=== PATIENT | female | born 1970 | race Caucasian/White ===

== ENCOUNTER 2017-04-11 07:30 | Inpatient (IN) | payer MEDICAID ==
[~2017-04-11] VITALS: Ht 167.6 cm; Wt 105.3 kg
[~2017-04-11 07:30] MED LIST: ATOR80TA PO; DOCU-94 PO; MAGN400T23 PO; METO25TA5 PO
[2017-04-11] MEDS ORDERED: SODIUM CHLORIDE 0.9% 1,000 ML IV ONE ×2 (09:44)
[2017-04-11] MEDS ORDERED: PIPERACILLIN-TAZOB 3.375GM 100 ML IV ONE (09:45)
[2017-04-11] MEDS ORDERED: CLINDAMYCIN 600MG IV 50 ML IV ONE (09:45)
[2017-04-11 10:11] LABS: Basophils # (auto) 0.1 uL; Basophils % (auto) 0.3 % (0.0-2.0); Eosinophils # (auto) 0.5 uL; Eosinophils % (auto) 2.6 % (0.0-7.0); Hemoglobin 13.4 g/dL (12.2-16.2); Lymphocytes # (auto) 4.1 uL; Lymphocytes % (auto) 21.4 % (10.0-50.0); Mean Corpuscular Hemoglobin 31.6 pg (28.0-32.0); Mean Corpuscular Hgb Conc. 33.4 g/dL (32.0-36.0); Mean Corpuscular Volume 94.6 fL (80.0-100.0); Mean Platelet Volume 7.7 fL (7.4-10.4); Monocytes # (auto) 1.2 uL; Monocytes % (auto) 6.1 % (0.0-12.0); Neutrophils # (auto) 13.4 uL; Neutrophils % (auto) 69.6 % (37.0-80.0); Platelet Count (auto) 419 10^3/uL (140-450); Red Cell Distribution Width 16.5 % (11.6-16.0); White Blood Cell 19.2 10^3/uL (4.4-10.8)
[2017-04-11 10:29] LABS: Albumin 3.1 g/dL (3.4-5.0); Anion Gap 11 (5-15); Aspartate Aminotransferase 5 U/L (15-37); BUN/Creatinine Ratio 4.3; Blood Urea Nitrogen 33 mg/dL (7-18); Calcium 8.7 mg/dL (8.5-10.1); Carbon Dioxide 22 mmol/L (21-32); Chloride 110 mmol/L (98-107); GFR African American 7 mL/min; GFR Non-African American 6 mL/min; Glucose 136 mg/dL (74-106); Potassium 4.2 mmol/L (3.5-5.1); Sodium 143 mmol/L (136-145)
[2017-04-11 10:34] LABS: Alkaline Phosphatase 81 U/L (45-117); Bilirubin, Total 0.3 mg/dL (0.2-1.0); Total Protein 6.6 g/dL (6.4-8.2)
[2017-04-11 10:37] LABS: B-Type Natriuretic Peptide 37.71 pg/mL (0-100)
[2017-04-11 10:39] LABS: Temperature: 23.5 C (20.0-25.0)
[2017-04-11 10:43] LABS: INR 0.9 (0.9-1.15); Partial Thromboplastin Time 27.7 sec (22.64-33.71); Prothrombin Time 9.7 sec (9.37-12.3)
[2017-04-11] MEDS ORDERED: ONDANSETRON HCL 4 MG/2 ML VIAL IV ONE (10:45)
[2017-04-11] MEDS ORDERED: MORPHINE SULFATE 4 MG/ML SYRG IV ONE (10:45)
[2017-04-11] MEDS ORDERED: VANCOMYCIN PER PHARMACY 0 MG IV SCH (12:00)
[2017-04-11] MEDS ORDERED: LORazepam 0.5 MG TAB PO PRN (12:00)
[2017-04-11] MEDS ORDERED: PROMETHAZINE HCL 25 MG/ML 1ML IV PRN (12:00)
[2017-04-11] MEDS ORDERED: LACTULOSE 20Gm/30ML SOLN PO PRN (12:00)
[2017-04-11] MEDS ORDERED: NITROGLYCERIN 0.4 MG SL TAB SL PRN (12:00)
[2017-04-11] MEDS ORDERED: DEXTROSE (50%) 50ML SYRG IV PRN (12:00)
[2017-04-11] MEDS ORDERED: MORPHINE SULF INJ 2 MG/ML SYRINGE 1ML IV PRN (12:00)
[2017-04-11] MEDS ORDERED: ACETAMINOPHEN 500 MG TAB PO PRN (12:00)
[2017-04-11] MEDS ORDERED: TEMAZEPAM 15 MG CAP PO PRN (12:00)
[2017-04-11] MEDS ORDERED: VANCOMYCIN 1GM/250ML D5W 250 ML IV ONE (12:30)
[2017-04-11] MEDS: FAMOTIDINE 20 MG TAB PO SCH (13:00)
[2017-04-11] MEDS: ENOXAPARIN SOD 30 MG/0.3 ML SYRINGE SC SCH (13:00)
[2017-04-11] MEDS: HYDROcodone-ACET 5/325MG TAB PO PRN ×2 (13:59→20:27)
[2017-04-11 16:47] LABS: Urine Bilirubin Negative (Negative); Urine Color Yellow (Yellow); Urine Ketone Negative (Negative); Urine Nitrite Negative (Negative); Urine RBC 527 /hpf (0 - 4); Urine Squamous Epithelial Cell MANY /hpf (<5); Urine Urobilinogen Normal (Negative)
[2017-04-11 16:52] VITALS: BP 116/80
[2017-04-11 16:54] LABS: Urine Blood 1+ /uL (Negative); Urine Glucose 3+ mg/dL (Normal)
[2017-04-11 17:00] VITALS: BP 120/70
[2017-04-11] MEDS: InsuLIN REG 1unit/0.01ml Soln (100units/ml) SC SCH ×2 (17:00→22:00)
[2017-04-11] MEDS: ACCU-CHEK COMFORT CURVE STRIP VI SCH ×2 (17:00→22:20)
[2017-04-11] MEDS ORDERED: METO-159 PO (18:16)
[2017-04-11] MEDS ORDERED: ATOR40TA52 PO (18:16)
[2017-04-11] MEDS ORDERED: OMEG100062 PO (18:24)
[2017-04-11] MEDS ORDERED: FURO80TA PO (18:24)
[2017-04-11] MEDS ORDERED: CALC0.25 PO (18:24)
[2017-04-11] MEDS ORDERED: IRON50IN3 IJ (18:24)
[2017-04-11] MEDS ORDERED: LOSA100T27 PO (18:24)
[2017-04-11] MEDS ORDERED: AMLO10TA2 PO (18:24)
[2017-04-11] MEDS ORDERED: INSLISPI SC (18:24)
[2017-04-11] MEDS ORDERED: CAL667C PO (18:24)
[2017-04-11] MEDS ORDERED: GENT0.1O5 TOP (18:24)
[2017-04-11] MEDS ORDERED: MULT1CHW52 PO (18:24)
[2017-04-11 20:15] VITALS: BP 108/65
[2017-04-11] MEDS: CLINDAMYCIN 600MG IV 50 ML IV SCH (20:28)
[2017-04-11 22:00] VITALS: BP 108/65
[2017-04-11] MEDS ORDERED: FAMOTIDINE 20 MG TAB PO SCH (22:00)
[2017-04-11] MEDS: MORPHINE SULF INJ 2 MG/ML SYRINGE 1ML IV PRN (22:17)
[2017-04-11] MEDS: PIPERACILLIN-TAZOB 2.25GM 50 ML IV SCH (23:23)
[2017-04-12] VITALS (7 sets, daily range): BP systolic 113–148; BP diastolic 72–93
[2017-04-12] MEDS: MORPHINE SULF INJ 2 MG/ML SYRINGE 1ML IV PRN ×4 (02:34→21:47)
[2017-04-12] MEDS: CLINDAMYCIN 600MG IV 50 ML IV SCH ×3 (04:30→20:03)
[2017-04-12 05:20] LABS: Basophils # (auto) 0.1 uL; Basophils % (auto) 0.7 % (0.0-2.0); Eosinophils # (auto) 0.4 uL; Eosinophils % (auto) 3.1 % (0.0-7.0); Hematocrit 35.2 % (36.0-46.0); Hemoglobin 11.5 g/dL (12.2-16.2); Lymphocytes % (auto) 14.2 % (10.0-50.0); Mean Corpuscular Hemoglobin 31.5 pg (28.0-32.0); Mean Corpuscular Hgb Conc. 32.8 g/dL (32.0-36.0); Mean Corpuscular Volume 96.1 fL (80.0-100.0); Mean Platelet Volume 7.7 fL (7.4-10.4); Monocytes # (auto) 0.8 uL; Monocytes % (auto) 5.7 % (0.0-12.0); Neutrophils % (auto) 76.3 % (37.0-80.0); Platelet Count (auto) 366 10^3/uL (140-450); Red Cell Distribution Width 15.5 % (11.6-16.0); SUSPECT VIEW TRANSMISSION; White Blood Cell 14.3 10^3/uL (4.4-10.8)
[2017-04-12] MEDS: HYDROcodone-ACET 5/325MG TAB PO PRN (05:34)
[2017-04-12 05:42] LABS: Albumin 2.5 g/dL (3.4-5.0); BUN/Creatinine Ratio 4.8; Bilirubin, Total 0.4 mg/dL (0.2-1.0); Calcium 7.9 mg/dL (8.5-10.1); Potassium 4.6 mmol/L (3.5-5.1); Total Protein 5.6 g/dL (6.4-8.2)
[2017-04-12] MEDS: InsuLIN REG 1unit/0.01ml Soln (100units/ml) SC SCH ×4 (06:39→21:51)
[2017-04-12] MEDS: ACCU-CHEK COMFORT CURVE STRIP VI SCH ×4 (06:40→21:51)
[2017-04-12] MEDS: FAMOTIDINE 20 MG TAB PO SCH (09:15)
[2017-04-12] MEDS: ENOXAPARIN SOD 30 MG/0.3 ML SYRINGE SC SCH (09:15)
[2017-04-12] MEDS: PIPERACILLIN-TAZOB 2.25GM 50 ML IV SCH ×2 (09:16→23:27)
[2017-04-13] VITALS (7 sets, daily range): BP systolic 121–150; BP diastolic 73–98
[2017-04-13] MEDS: MORPHINE SULF INJ 2 MG/ML SYRINGE 1ML IV PRN ×2 (02:08→08:03)
[2017-04-13] MEDS: CLINDAMYCIN 600MG IV 50 ML IV SCH ×2 (04:11→11:43)
[2017-04-13] MEDS: InsuLIN REG 1unit/0.01ml Soln (100units/ml) SC SCH ×4 (06:41→22:09)
[2017-04-13] MEDS: ACCU-CHEK COMFORT CURVE STRIP VI SCH ×4 (06:42→22:09)
[2017-04-13 06:49] LABS: Basophils # (auto) 0 uL; Basophils % (auto) 0.3 % (0.0-2.0); Eosinophils # (auto) 0.5 uL; Eosinophils % (auto) 4.7 % (0.0-7.0); Hematocrit 33.8 % (36.0-46.0); Hemoglobin 11.2 g/dL (12.2-16.2); Lymphocytes # (auto) 1.9 uL; Lymphocytes % (auto) 16.2 % (10.0-50.0); Mean Corpuscular Hemoglobin 32.1 pg (28.0-32.0); Mean Corpuscular Volume 97.1 fL (80.0-100.0); Mean Platelet Volume 7.9 fL (7.4-10.4); Monocytes % (auto) 8.7 % (0.0-12.0); Neutrophils % (auto) 70.1 % (37.0-80.0); Platelet Count (auto) 358 10^3/uL (140-450); Red Cell Distribution Width 16.3 % (11.6-16.0); White Blood Cell 11.4 10^3/uL (4.4-10.8)
[2017-04-13] MEDS: ENOXAPARIN SOD 30 MG/0.3 ML SYRINGE SC SCH (09:59)
[2017-04-13] MEDS: PIPERACILLIN-TAZOB 2.25GM 50 ML IV SCH ×2 (09:59→23:05)
[2017-04-13] MEDS: FAMOTIDINE 20 MG TAB PO SCH (09:59)
[2017-04-13] MEDS: HYDROcodone-ACET 7.5/325MG TAB PO PRN ×2 (14:23→20:31)
[2017-04-14] MEDS: HYDROcodone-ACET 7.5/325MG TAB PO PRN ×2 (02:40→09:08)
[2017-04-14 05:10] VITALS: BP 129/87
[2017-04-14 06:18] LABS: Basophils # (auto) 0.1 uL; Basophils % (auto) 0.5 % (0.0-2.0); Eosinophils # (auto) 0.4 uL; Eosinophils % (auto) 3.7 % (0.0-7.0); Hematocrit 35.3 % (36.0-46.0); Hemoglobin 11.8 g/dL (12.2-16.2); Lymphocytes # (auto) 2.2 uL; Lymphocytes % (auto) 19.7 % (10.0-50.0); Mean Corpuscular Hemoglobin 31.8 pg (28.0-32.0); Mean Corpuscular Hgb Conc. 33.3 g/dL (32.0-36.0); Mean Corpuscular Volume 95.3 fL (80.0-100.0); Mean Platelet Volume 7.7 fL (7.4-10.4); Monocytes # (auto) 1.1 uL; Monocytes % (auto) 9.9 % (0.0-12.0); Neutrophils # (auto) 7.5 uL; Neutrophils % (auto) 66.2 % (37.0-80.0); Platelet Count (auto) 375 10^3/uL (140-450); Red Cell Distribution Width 16.5 % (11.6-16.0); White Blood Cell 11.3 10^3/uL (4.4-10.8)
[2017-04-14] MEDS: ACCU-CHEK COMFORT CURVE STRIP VI SCH ×2 (06:39→11:29)
[2017-04-14] MEDS: InsuLIN REG 1unit/0.01ml Soln (100units/ml) SC SCH ×2 (06:39→11:29)
[2017-04-14 08:00] VITALS: BP 147/96
[2017-04-14 09:00] VITALS: BP 147/96
[2017-04-14] MEDS: ENOXAPARIN SOD 30 MG/0.3 ML SYRINGE SC SCH (09:08)
[2017-04-14] MEDS: FAMOTIDINE 20 MG TAB PO SCH (09:08)
[2017-04-14] MEDS: PIPERACILLIN-TAZOB 2.25GM 50 ML IV SCH (10:26)
[2017-04-14] MEDS ORDERED: SACC250C PO ×2 (11:37→11:38)
[2017-04-14] MEDS ORDERED: NOR5T PO (11:37)
[2017-04-14] MEDS ORDERED: CLIN1CAP4 PO (11:37)
== END 2017-04-14 13:00 | disposition home or self-care (01) | DRG 380 ==
LOC: ER 07:36 → TELE 07:37 → TELE-WESTW 16:53
PROVIDERS: ADMIT Internal Medicine; ATTEND Internal Medicine
DX: E11.622 Type 2 diabetes mellitus with other skin ulcer (principal); L97.919 Non-pressure chronic ulcer of unspecified part of right lower leg with unspecified severity; N18.6 End stage renal disease; I12.0 Hypertensive chronic kidney disease with stage 5 chronic kidney disease or end stage renal disease; E11.22 Type 2 diabetes mellitus with diabetic chronic kidney disease; L03.115 Cellulitis of right lower limb; Z99.2 Dependence on renal dialysis; Z82.3 Family history of stroke; Z82.49 Family history of ischemic heart disease and other diseases of the circulatory system; Z83.3 Family history of diabetes mellitus; Z85.819 Personal history of malignant neoplasm of unspecified site of lip, oral cavity, and pharynx; Z86.73 Personal history of transient ischemic attack (TIA), and cerebral infarction without residual deficits; Z87.442 Personal history of urinary calculi; Z87.891 Personal history of nicotine dependence; E11.51 Type 2 diabetes mellitus with diabetic peripheral angiopathy without gangrene; Z90.49 Acquired absence of other specified parts of digestive tract; Z90.710 Acquired absence of both cervix and uterus; Z63.72 Alcoholism and drug addiction in family; Z80.9 Family history of malignant neoplasm, unspecified
CPT/HCPCS: 36415; 71010; 80053; 81001; 82962; 83036; 83605; 83880; 84132; 84484; 85025; 85379; 85610; 85652; 85730; 87040; 87081; 93926; 93970; 96365; 96366; 96367; 96375; J1815; J2405; J2543; J3490

== ENCOUNTER 2017-05-03 13:12 | Emergency (ER) | payer MEDICAID ==
[~2017-05-03] VITALS: Ht 167.6 cm; Wt 99.8 kg
[~2017-05-03 13:12] MED LIST changes: +AMLO10TA2 PO; +ATOR40TA52 PO; -ATOR80TA PO; +CALC0.25 PO; +CALC667C5 PO; +CLIN1CAP4 PO; -DOCU-94 PO; +FURO80TA PO; +GENT0.1O5 TOP; +HYDR-4663 PO; +INSLISPI SC; +IRON50IN3 IJ; +LOSA100T27 PO; -MAGN400T23 PO; +METO-159 PO; -METO25TA5 PO; +MULT1CHW52 PO; +OMEG100062 PO; +SACC250C PO
[2017-05-03 13:19] VITALS: BP 127/70
== END 2017-05-03 17:25 | disposition left against medical advice (07) ==
LOC: ER 13:16
DX: M79.604 Pain in right leg (principal); Z53.21 Procedure and treatment not carried out due to patient leaving prior to being seen by health care provider

== ENCOUNTER 2023-11-27 09:45 | Inpatient (IN) | payer MEDICAID ==
[2023-11-27] VITALS (9 sets, daily range): BP systolic 180; BP diastolic 127; PULSE 104–110; RESP 12–37; TEMP 98.6; O2SAT 91–99
[~2023-11-27] VITALS: Ht 168.9 cm; Wt 83.9 kg
[~2023-11-27 09:45] MED LIST changes: -AMLO10TA2 PO; +AMLO1TAB23 PO; -CLIN1CAP4 PO; +CLIN300C70 PO; +FURO1TAB32 PO; -FURO80TA PO; -HYDR-4663 PO; +HYDR-4833 PO; -LOSA100T27 PO; +LOSA100T58 PO
[2023-11-27] MEDS ORDERED: VANCOMYCIN 1GM/200ML 200 ML IV ONE (10:15)
[2023-11-27] MEDS ORDERED: IPRATROPIUM BROM 0.5 MG/2.5ML INH SOL HHN ONE (10:15)
[2023-11-27] MEDS ORDERED: DexAMETHasone SOD PHOS 10MG/1ML VIAL INJ IV ONE (10:15)
[2023-11-27] MEDS ORDERED: levoFLOXacin 750MG 150 ML IV ONE (10:15)
[2023-11-27] MEDS ORDERED: ALBUTEROL SULF 2.5 MG/0.5ML(0.5%) NEB SOLN HHN ONE (10:15)
[2023-11-27 10:29] LABS: Base Excess -3.8 mmol/L (-2.0-2.0)
[2023-11-27 10:42] LABS: Basophils # (auto) 0.1 10 ^3/uL (0-0.2); Eosinophils # (auto) 0.2 10 ^3/uL (0-0.8); Hemoglobin 8.4 g/dL (12.2-16.2); Lymphocytes # (auto) 1.1 10 ^3/uL (0.4-5.4); Monocytes # (auto) 0.5 10 ^3/uL (0-1.3); Nucleated Red Blood Cells % 0.1 %; White Blood Cell 10.3 10^3/uL (4.4-10.8)
[2023-11-27 10:44] LABS: Basophils % (auto) 0.8 % (0.0-2.0); Eosinophils % (auto) 2.3 % (0.0-7.0); Hematocrit 26.2 % (36.0-46.0); Lymphocytes % (auto) 11.1 % (10.0-50.0); Mean Corpuscular Hgb Conc. 32.1 g/dL (32.0-36.0); Mean Corpuscular Volume 96.5 fL (80.0-100.0); Monocytes % (auto) 4.7 % (0.0-12.0); Neutrophils # (auto) 8.3 10 ^3/uL (1.6-8.6); Neutrophils % (auto) 81.1 % (37.0-80.0); Red Blood Cells 2.72 10^6/uL (4.0-5.20); Red Cell Distribution Width 19.1 % (11.8-14.3)
[2023-11-27 10:56] LABS: INR 1.11 (0.9-1.15); Partial Thromboplastin Time 27.2 SEC (24.5-34.5); Prothrombin Time 11.6 sec (9.3-11.8)
[2023-11-27 11:11] LABS: Alanine Aminotransferase 73 U/L (7-40); Albumin 4.3 g/dL (3.2-4.8); Alkaline Phosphatase 82 U/L (46-116); Anion Gap 19 (5-15); Aspartate Aminotransferase 15 U/L (13-40); BUN/Creatinine Ratio 7.9 (10.0-20.0); Blood Urea Nitrogen 73 mg/dL (9-23); Calcium 9.2 mg/dL (8.5-10.1); Carbon Dioxide 19 mmol/L (20-30); Chloride 102 mmol/L (98-107); Glucose 101 mg/dL (74-106); Sodium 140 mmol/L (136-145)
[2023-11-27 11:12] LABS: Bilirubin, Total 0.9 mg/dL (0.2-1.0)
[2023-11-27 11:13] LABS: Total Protein 6.5 g/dL (5.7-8.2)
[2023-11-27] MEDS ORDERED: FUROSEMIDE 100 MG/10ML VIAL IV ONE (11:15)
[2023-11-27 11:19] LABS: Potassium 5.9 mmol/L (3.5-5.1)
[2023-11-27 11:31] LABS: Magnesium 2.4 mg/dL (1.6-2.6)
[2023-11-27] MEDS ORDERED: AZITHROMYCIN 500MG/ 250ML 250 ML IV ONE (12:00)
[2023-11-27] MEDS ORDERED: ALBUTEROL SULF 2.5 MG/0.5ML(0.5%) NEB SOLN NEB PRN (12:00)
[2023-11-27] MEDS ORDERED: cefTRIAXone 1GM/50ML D5W 50 ML IV ONE (12:00)
[2023-11-27] MEDS ORDERED: MORPHINE SULFATE INJ 2 MG/ml SYRG IV PRN (12:00)
[2023-11-27] MEDS ORDERED: NITROGLYCERIN 0.4 MG SL TAB SL PRN (12:00)
[2023-11-27] MEDS: CALCITRIOL 0.25 MCG CAP PO SCH (12:00)
[2023-11-27] MEDS ORDERED: DEXTROSE (50%) 50ML SYRG IV PRN (12:15)
[2023-11-27 12:44] LABS: Rapid Influenza A Negative (Negative); Rapid Influenza B Negative (Negative)
[2023-11-27 12:45] LABS: COVID19 ANTIGEN SOFIA FIA NEGATIVE (NEGATIVE)
[2023-11-27] MEDS ORDERED: FUROSEMIDE 100 MG/10ML VIAL IV SCH (12:45)
[2023-11-27] MEDS: ALBUTEROL SULF 2.5 MG/0.5ML(0.5%) NEB SOLN NEB SCH ×3 (13:45→22:10)
[2023-11-27] MEDS: IPRATROPIUM BROM 0.5 MG/2.5ML INH SOL NEB SCH ×3 (13:45→22:10)
[2023-11-27] MEDS: ACETAMINOPHEN 325 MG TAB PO PRN ×2 (14:00→20:46)
[2023-11-27] MEDS: CALCIUM ACETATE 667 MG CAP PO SCH ×2 (14:00→22:48)
[2023-11-27] MEDS ORDERED: SODIUM BICARBONATE 8.4% INJ 50ML SYRINGE IV ONE (15:15)
[2023-11-27] MEDS ORDERED: SODIUM ZIRCONIUM CYCL 10 GM PAK PO ONE (15:15)
[2023-11-27] MEDS: InsuLIN REG 1unit/0.01ml Soln (100units/ml) SC SCH ×2 (17:00→22:51)
[2023-11-27] MEDS: ACCU-CHEK COMFORT CURVE STRIP VI SCH ×2 (17:00→22:00)
[2023-11-27] MEDS: FUROSEMIDE INJECTION 100 MG in SODIUM CHL 0.9% 100 ML IV SCH (21:27)
[2023-11-27] MEDS ORDERED: FUROSEMIDE 40 MG TAB PO SCH (22:00)
[2023-11-27] MEDS: SODIUM ZIRCONIUM CYCL 10 GM PAK PO SCH (22:48)
[2023-11-27] MEDS: HEPARIN SODIUM (PORCINE) 5000 UNITS/ML 1ML VIAL SC SCH (22:49)
[2023-11-27] MEDS: methylPREDNISolone SOD SUCC 40 MG/ML VL IV SCH (22:49)
[2023-11-27] MEDS: HYDROcodone-ACET 5/325MG TAB PO PRN (23:11)
[2023-11-27] MEDS: hydrALAZINE HCL 20 MG/ML VL IV PRN (23:12)
[2023-11-28] VITALS (24 sets, daily range): BP systolic 127–166; BP diastolic 71–102; PULSE 62–120; RESP 16–28; TEMP 97.1–98.2; O2SAT 8–100
[2023-11-28] MEDS: IPRATROPIUM BROM 0.5 MG/2.5ML INH SOL NEB SCH ×6 (03:27→21:53)
[2023-11-28] MEDS: ALBUTEROL SULF 2.5 MG/0.5ML(0.5%) NEB SOLN NEB SCH ×6 (03:27→21:53)
[2023-11-28] MEDS: ACETAMINOPHEN 325 MG TAB PO PRN (04:19)
[2023-11-28] MEDS: FUROSEMIDE INJECTION 100 MG in SODIUM CHL 0.9% 100 ML IV SCH (05:32)
[2023-11-28 05:47] LABS: Basophils # (auto) 0 10 ^3/uL (0-0.2); Basophils % (auto) 0.1 % (0.0-2.0); Eosinophils # (auto) 0 10 ^3/uL (0-0.8); Hemoglobin 7.2 g/dL (12.2-16.2); Lymphocytes # (auto) 0.4 10 ^3/uL (0.4-5.4); Lymphocytes % (auto) 5.3 % (10.0-50.0); Mean Corpuscular Hemoglobin 31.3 pg (28.0-32.0); Mean Corpuscular Hgb Conc. 32.6 g/dL (32.0-36.0); Mean Corpuscular Volume 95.8 fL (80.0-100.0); Monocytes # (auto) 0.1 10 ^3/uL (0-1.3); Neutrophils # (auto) 6.3 10 ^3/uL (1.6-8.6); Neutrophils % (auto) 92.6 % (37.0-80.0); Nucleated Red Blood Cells % 0.1 %; Red Cell Distribution Width 18.8 % (11.8-14.3); White Blood Cell 6.9 10^3/uL (4.4-10.8)
[2023-11-28 06:15] LABS: Alanine Aminotransferase 52 U/L (7-40); Alkaline Phosphatase 71 U/L (46-116); Anion Gap 18 (5-15); Aspartate Aminotransferase 10 U/L (13-40); BUN/Creatinine Ratio 7.1 (10.0-20.0); Bilirubin, Total 0.7 mg/dL (0.2-1.0); Blood Urea Nitrogen 72 mg/dL (9-23); Calcium 9.1 mg/dL (8.7-10.4); Carbon Dioxide 19 mmol/L (20-30); Chloride 100 mmol/L (98-107); Glucose 158 mg/dL (74-106); Sodium 137 mmol/L (136-145); Total Protein 6.1 g/dL (5.7-8.2)
[2023-11-28] MEDS: SODIUM ZIRCONIUM CYCL 10 GM PAK PO SCH ×3 (06:23→21:47)
[2023-11-28] MEDS: CALCIUM ACETATE 667 MG CAP PO SCH ×3 (06:23→21:47)
[2023-11-28] MEDS: ACCU-CHEK COMFORT CURVE STRIP VI SCH ×4 (06:23→22:06)
[2023-11-28] MEDS: InsuLIN REG 1unit/0.01ml Soln (100units/ml) SC SCH ×4 (06:24→22:20)
[2023-11-28 06:30] LABS: Base Excess -4.6 mmol/L (-2.0-2.0)
[2023-11-28] MEDS ORDERED: SODIUM CHL 0.9% 1000 ML BAG XX ONE (07:00)
[2023-11-28] MEDS ORDERED: cefTRIAXone 1GM/50ML D5W 50 ML IV SCH (09:00)
[2023-11-28] MEDS ORDERED: VANCOMYCIN PER PHARMACY 0 MG IV SCH (09:15)
[2023-11-28] MEDS: HYDROcodone-ACET 5/325MG TAB PO PRN ×2 (09:55→17:41)
[2023-11-28] MEDS: HEPARIN SODIUM (PORCINE) 5000 UNITS/ML 1ML VIAL SC SCH ×2 (10:00→21:55)
[2023-11-28] MEDS: ATORVASTATIN 20 MG TAB PO SCH (10:00)
[2023-11-28] MEDS ORDERED: CEFEPIME 1GM/ 50ML 50 ML IV SCH (10:00)
[2023-11-28] MEDS ORDERED: LOSARTAN POTASSIUM 50 MG TAB PO SCH (10:00)
[2023-11-28] MEDS: FLORASTOR (S. BOULARDII) 250 MG CAP PO SCH (10:00)
[2023-11-28] MEDS: AZITHROMYCIN 500MG/ 250ML 250 ML IV SCH (10:00)
[2023-11-28] MEDS: METOPROLOL TARTRATE 50 MG TAB PO SCH (10:00)
[2023-11-28] MEDS: methylPREDNISolone SOD SUCC 40 MG/ML VL IV SCH ×2 (10:00→21:44)
[2023-11-28] MEDS: amLODIPine BESYLATE 5 MG TAB PO SCH (10:00)
[2023-11-28] MEDS ORDERED: guaiFENesin-CODEINE Liq 5 ML UD PO ONE (16:00)
[2023-11-28] MEDS: CEFEPIME 1GM/ 50ML 50 ML IV SCH ×2 (16:04→17:20)
[2023-11-28] MEDS ORDERED: guaiFENesin-CODEINE Liq 5 ML UD GT PRN (18:00)
[2023-11-28] MEDS ORDERED: VANCOMYCIN 1GM/200ML 200 ML IV ONE ×2 (18:00→22:00)
[2023-11-28] MEDS ORDERED: EPOETIN ALFA-EPBX 4,000 UNIT/ML VIAL SC ONE (21:00)
[2023-11-28] MEDS: CARVEDILOL 12.5 MG TAB PO SCH (21:47)
[2023-11-29] VITALS (21 sets, daily range): BP systolic 108–131; BP diastolic 58–78; PULSE 75–96; RESP 14–30; TEMP 97.2–98.7; O2SAT 82–100
[2023-11-29] MEDS: IPRATROPIUM BROM 0.5 MG/2.5ML INH SOL NEB SCH ×6 (01:43→22:53)
[2023-11-29] MEDS: ALBUTEROL SULF 2.5 MG/0.5ML(0.5%) NEB SOLN NEB SCH ×6 (01:43→22:53)
[2023-11-29] MEDS: ALPRAZolam 0.5 MG TAB PO PRN ×2 (01:50→13:19)
[2023-11-29] MEDS: CALCIUM ACETATE 667 MG CAP PO SCH ×3 (06:03→21:52)
[2023-11-29] MEDS: SODIUM ZIRCONIUM CYCL 10 GM PAK PO SCH ×2 (06:03→13:18)
[2023-11-29] MEDS: ACCU-CHEK COMFORT CURVE STRIP VI SCH ×4 (06:04→22:00)
[2023-11-29] MEDS: InsuLIN REG 1unit/0.01ml Soln (100units/ml) SC SCH ×4 (06:13→22:09)
[2023-11-29 06:17] LABS: Calcium 8.4 mg/dL (8.7-10.4); Chloride 98 mmol/L (98-107); Sodium 138 mmol/L (136-145)
[2023-11-29 06:18] LABS: Anion Gap 14 (5-15); Carbon Dioxide 26 mmol/L (20-30)
[2023-11-29 06:23] LABS: BUN/Creatinine Ratio 7.7 (10.0-20.0); Glucose 165 mg/dL (74-106)
[2023-11-29 07:05] LABS: Blood Urea Nitrogen 53 mg/dL (9-23)
[2023-11-29] MEDS: HYDROcodone-ACET 5/325MG TAB PO PRN (08:52)
[2023-11-29] MEDS: ATORVASTATIN 20 MG TAB PO SCH (10:00)
[2023-11-29] MEDS: CARVEDILOL 12.5 MG TAB PO SCH ×2 (10:00→21:50)
[2023-11-29] MEDS: AZITHROMYCIN 500MG/ 250ML 250 ML IV SCH (10:00)
[2023-11-29] MEDS: METOPROLOL TARTRATE 50 MG TAB PO SCH (10:00)
[2023-11-29] MEDS: methylPREDNISolone SOD SUCC 40 MG/ML VL IV SCH ×3 (13:19→21:51)
[2023-11-29] MEDS: CEFEPIME 1GM/ 50ML 50 ML IV SCH (13:19)
[2023-11-29] MEDS: FLORASTOR (S. BOULARDII) 250 MG CAP PO SCH (13:20)
[2023-11-29] MEDS: amLODIPine BESYLATE 5 MG TAB PO SCH (13:21)
[2023-11-29] MEDS: HEPARIN SODIUM (PORCINE) 5000 UNITS/ML 1ML VIAL SC SCH ×2 (13:30→21:59)
[2023-11-30] VITALS (31 sets, daily range): BP systolic 102–184; BP diastolic 61–115; PULSE 65–93; RESP 10–21; TEMP 97–98.7; O2SAT 84–100
[2023-11-30] MEDS: ALPRAZolam 0.5 MG TAB PO PRN (00:34)
[2023-11-30] MEDS: HYDROcodone-ACET 5/325MG TAB PO PRN ×2 (02:15→20:57)
[2023-11-30] MEDS: ALBUTEROL SULF 2.5 MG/0.5ML(0.5%) NEB SOLN NEB SCH ×6 (02:28→21:53)
[2023-11-30] MEDS: IPRATROPIUM BROM 0.5 MG/2.5ML INH SOL NEB SCH ×6 (02:28→21:53)
[2023-11-30] MEDS: CALCIUM ACETATE 667 MG CAP PO SCH ×3 (06:08→20:58)
[2023-11-30] MEDS: methylPREDNISolone SOD SUCC 40 MG/ML VL IV SCH ×3 (06:08→20:57)
[2023-11-30] MEDS: InsuLIN REG 1unit/0.01ml Soln (100units/ml) SC SCH ×4 (06:19→22:35)
[2023-11-30] MEDS: ACCU-CHEK COMFORT CURVE STRIP VI SCH ×4 (06:20→22:32)
[2023-11-30 06:51] LABS: Anion Gap 11 (5-15); Calcium 8.5 mg/dL (8.7-10.4); Carbon Dioxide 30 mmol/L (20-30); Chloride 102 mmol/L (98-107); Potassium 4.8 mmol/L (3.5-5.1); Sodium 143 mmol/L (136-145)
[2023-11-30 06:57] LABS: BUN/Creatinine Ratio 10.1 (10.0-20.0); Blood Urea Nitrogen 59 mg/dL (9-23); Glucose 148 mg/dL (74-106)
[2023-11-30 08:11] LABS: Base Excess 6.6 mmol/L (-2.0-2.0)
[2023-11-30 08:54] LABS: Basophils # (auto) 0 10 ^3/uL (0-0.2); Eosinophils # (auto) 0 10 ^3/uL (0-0.8); Hematocrit 17.8 % (36.0-46.0); Lymphocytes # (auto) 0.3 10 ^3/uL (0.4-5.4); Monocytes # (auto) 0.3 10 ^3/uL (0-1.3); Red Blood Cells 1.84 10^6/uL (4.0-5.20)
[2023-11-30 08:56] LABS: Lymphocytes % (auto) 6.2 % (10.0-50.0); Mean Corpuscular Hemoglobin 30.9 pg (28.0-32.0); Mean Corpuscular Hgb Conc. 31.9 g/dL (32.0-36.0); Mean Corpuscular Volume 96.8 fL (80.0-100.0); Monocytes % (auto) 4.8 % (0.0-12.0); White Blood Cell 5.6 10^3/uL (4.4-10.8)
[2023-11-30 08:59] LABS: Red Cell Distribution Width 20.4 % (11.8-14.3)
[2023-11-30 09:00] LABS: Hemoglobin 5.7 g/dL (12.2-16.2)
[2023-11-30 09:01] LABS: Magnesium 2.1 mg/dL (1.6-2.6)
[2023-11-30 09:02] LABS: Phosphorus 7.8 mg/dL (2.4-5.1)
[2023-11-30] MEDS ORDERED: FUROSEMIDE 20 MG/2 ML VIAL IV ONE (09:15)
[2023-11-30 09:16] LABS: Urine Bacteria FEW /hpf (None Seen); Urine Blood 3+ /uL (Negative); Urine Clarity HAZY (Clear); Urine Color Red (Yellow); Urine Protein, UAD 3+ (Negative); Urine Specific Gravity 1.014 (1.001-1.035); Urine Urobilinogen Normal (Negative); Urine WBC 205 /hpf (0 - 5)
[2023-11-30 09:19] LABS: Anisocytosis Slight; Hypochromia Slight; Platelet Estimate Decreased; Polychromasia Slight
[2023-11-30] MEDS: FLORASTOR (S. BOULARDII) 250 MG CAP PO SCH (09:48)
[2023-11-30] MEDS: AZITHROMYCIN 500MG/ 250ML 250 ML IV SCH (09:48)
[2023-11-30] MEDS: ATORVASTATIN 20 MG TAB PO SCH (09:48)
[2023-11-30] MEDS: amLODIPine BESYLATE 5 MG TAB PO SCH (09:49)
[2023-11-30] MEDS: CARVEDILOL 12.5 MG TAB PO SCH ×2 (09:49→20:58)
[2023-11-30] MEDS: HEPARIN SODIUM (PORCINE) 5000 UNITS/ML 1ML VIAL SC SCH (09:50)
[2023-11-30] MEDS: METOPROLOL TARTRATE 50 MG TAB PO SCH (09:50)
[2023-11-30] MEDS: CEFEPIME 1GM/ 50ML 50 ML IV SCH (11:49)
[2023-11-30] MEDS: CALCITRIOL 0.25 MCG CAP PO SCH (12:00)
[2023-12-01] VITALS (34 sets, daily range): BP systolic 119–173; BP diastolic 46–103; PULSE 63–84; RESP 9–25; TEMP 96.5–98.4; O2SAT 92–100
[2023-12-01] MEDS: IPRATROPIUM BROM 0.5 MG/2.5ML INH SOL NEB SCH ×6 (02:06→22:11)
[2023-12-01] MEDS: ALBUTEROL SULF 2.5 MG/0.5ML(0.5%) NEB SOLN NEB SCH ×6 (02:06→22:11)
[2023-12-01] MEDS: HYDROcodone-ACET 5/325MG TAB PO PRN ×3 (03:02→22:12)
[2023-12-01] MEDS: CALCIUM ACETATE 667 MG CAP PO SCH ×3 (06:00→21:49)
[2023-12-01] MEDS: methylPREDNISolone SOD SUCC 40 MG/ML VL IV SCH ×2 (06:00→21:48)
[2023-12-01] MEDS: ACCU-CHEK COMFORT CURVE STRIP VI SCH ×4 (06:00→22:00)
[2023-12-01] MEDS: InsuLIN REG 1unit/0.01ml Soln (100units/ml) SC SCH ×4 (06:04→22:00)
[2023-12-01 06:12] LABS: Hematocrit 30.4 % (36.0-46.0); Hemoglobin 9.6 g/dL (12.2-16.2); Mean Corpuscular Hemoglobin 31.5 pg (28.0-32.0); Mean Corpuscular Hgb Conc. 31.5 g/dL (32.0-36.0); Red Blood Cells 3.04 10^6/uL (4.0-5.20); Red Cell Distribution Width 18.8 % (11.8-14.3); White Blood Cell 10.7 10^3/uL (4.4-10.8)
[2023-12-01 06:32] LABS: Alanine Aminotransferase 26 U/L (7-40); Albumin 3.6 g/dL (3.2-4.8); Alkaline Phosphatase 76 U/L (46-116); Anion Gap 16 (5-15); Aspartate Aminotransferase 14 U/L (13-40); BUN/Creatinine Ratio 7.5 (10.0-20.0); Blood Urea Nitrogen 51 mg/dL (9-23); Calcium 8.7 mg/dL (8.7-10.4); Carbon Dioxide 24 mmol/L (20-30); Chloride 104 mmol/L (98-107); Glucose 157 mg/dL (74-106); Potassium 4.5 mmol/L (3.5-5.1); Sodium 144 mmol/L (136-145)
[2023-12-01 06:33] LABS: Total Protein 5.6 g/dL (5.7-8.2)
[2023-12-01] MEDS: hydrALAZINE HCL 20 MG/ML VL IV PRN (06:35)
[2023-12-01 07:18] LABS: Base Excess 0.5 mmol/L (-2.0-2.0)
[2023-12-01 07:37] LABS: Basophils % (manual) 0 (0.0-2.0); Blast Cells 0; Eosinophils % (manual) 0 (0-7); Metamyelocytes % 0; Myelocytes % 0; Promyelocytes % 0; Reactive Lymphocytes 0
[2023-12-01 08:53] LABS: Anisocytosis Slight; Band Neutrophils % (manual) 3; Hypochromia Slight; Lymphocytes % (manual) 4 (10.0-50.0); Monocytes % (manual) 3 (0-12)
[2023-12-01 08:54] LABS: Platelet Estimate Decreased
[2023-12-01] MEDS: amLODIPine BESYLATE 5 MG TAB PO SCH (10:00)
[2023-12-01] MEDS: CARVEDILOL 12.5 MG TAB PO SCH ×2 (10:00→21:48)
[2023-12-01] MEDS: METOPROLOL TARTRATE 50 MG TAB PO SCH (10:00)
[2023-12-01 10:35] LABS: Hepatitis B Surface Antigen Negative (Negative)
[2023-12-01 10:56] LABS: Hepatitis C Antibody Negative (Negative)
[2023-12-01] MEDS: ATORVASTATIN 20 MG TAB PO SCH (12:25)
[2023-12-01] MEDS: FLORASTOR (S. BOULARDII) 250 MG CAP PO SCH (12:25)
[2023-12-01] MEDS: CEFEPIME 1GM/ 50ML 50 ML IV SCH (12:25)
[2023-12-01] MEDS: AZITHROMYCIN 500MG/ 250ML 250 ML IV SCH (12:25)
[2023-12-01] MEDS: ALPRAZolam 0.5 MG TAB PO PRN (13:52)
[2023-12-01] MEDS ORDERED: VANCOMYCIN 500 MG in D5W 5% 100 ML IV ONE ×2 (16:00→20:00)
[2023-12-01] MEDS ORDERED: ALPRAZolam 0.5 MG TAB PO PRN (19:45)
[2023-12-02] VITALS (22 sets, daily range): BP systolic 119–173; BP diastolic 51–79; PULSE 6–83; RESP 13–23; TEMP 97.1–98; O2SAT 93–100
[2023-12-02] MEDS: IPRATROPIUM BROM 0.5 MG/2.5ML INH SOL NEB SCH ×6 (02:17→21:38)
[2023-12-02] MEDS: ALBUTEROL SULF 2.5 MG/0.5ML(0.5%) NEB SOLN NEB SCH ×6 (02:18→21:38)
[2023-12-02] MEDS: HYDROcodone-ACET 5/325MG TAB PO PRN ×2 (04:43→09:53)
[2023-12-02 05:01] LABS: Basophils # (auto) 0 10 ^3/uL (0-0.2); Eosinophils # (auto) 0 10 ^3/uL (0-0.8); Eosinophils % (auto) 0.1 % (0.0-7.0); Hematocrit 28.3 % (36.0-46.0); Hemoglobin 9.3 g/dL (12.2-16.2); Lymphocytes # (auto) 0.4 10 ^3/uL (0.4-5.4); Lymphocytes % (auto) 3.2 % (10.0-50.0); Mean Corpuscular Hemoglobin 31.8 pg (28.0-32.0); Mean Corpuscular Hgb Conc. 32.7 g/dL (32.0-36.0); Mean Corpuscular Volume 97.2 fL (80.0-100.0); Monocytes # (auto) 0.3 10 ^3/uL (0-1.3); Monocytes % (auto) 2.8 % (0.0-12.0); Neutrophils # (auto) 11.4 10 ^3/uL (1.6-8.6); Neutrophils % (auto) 93.9 % (37.0-80.0); Nucleated Red Blood Cells % 0.1 %; Red Blood Cells 2.91 10^6/uL (4.0-5.20); Red Cell Distribution Width 18.9 % (11.8-14.3); White Blood Cell 12.2 10^3/uL (4.4-10.8)
[2023-12-02 05:15] LABS: Anion Gap 12 (5-15); Carbon Dioxide 29 mmol/L (20-30); Chloride 103 mmol/L (98-107); Potassium 4.4 mmol/L (3.5-5.1); Sodium 144 mmol/L (136-145)
[2023-12-02 05:16] LABS: Calcium 8.6 mg/dL (8.7-10.4)
[2023-12-02 05:21] LABS: Blood Urea Nitrogen 46 mg/dL (9-23); Glucose 169 mg/dL (74-106)
[2023-12-02] MEDS: CALCIUM ACETATE 667 MG CAP PO SCH ×3 (06:00→21:01)
[2023-12-02] MEDS: ACCU-CHEK COMFORT CURVE STRIP VI SCH ×4 (07:00→22:07)
[2023-12-02] MEDS: InsuLIN REG 1unit/0.01ml Soln (100units/ml) SC SCH ×4 (07:00→21:05)
[2023-12-02] MEDS ORDERED: LACTULOSE 20Gm/30ML SOLN PO ONE (09:30)
[2023-12-02] MEDS ORDERED: DOCUSATE SOD 100 MG CAP PO PRN (09:30)
[2023-12-02] MEDS: FLORASTOR (S. BOULARDII) 250 MG CAP PO SCH (09:53)
[2023-12-02] MEDS: ATORVASTATIN 20 MG TAB PO SCH (09:53)
[2023-12-02] MEDS: METOPROLOL TARTRATE 50 MG TAB PO SCH (09:54)
[2023-12-02] MEDS: amLODIPine BESYLATE 5 MG TAB PO SCH (09:56)
[2023-12-02] MEDS: CARVEDILOL 12.5 MG TAB PO SCH ×2 (09:56→21:01)
[2023-12-02] MEDS: methylPREDNISolone SOD SUCC 40 MG/ML VL IV SCH ×2 (09:58→21:01)
[2023-12-02] MEDS: AZITHROMYCIN 500MG/ 250ML 250 ML IV SCH (10:06)
[2023-12-02] MEDS: NYSTATIN TOPICAL POWDER 15GM TOP SCH ×2 (10:33→22:00)
[2023-12-02] MEDS: CEFEPIME 1GM/ 50ML 50 ML IV SCH (13:21)
[2023-12-02] MEDS ORDERED: traZODone HCL 50 MG TAB PO SCH (22:00)
[2023-12-02] MEDS: traZODone HCL 50 MG TAB PO SCH (22:06)
[2023-12-03] VITALS (9 sets, daily range): BP systolic 111–142; BP diastolic 48–93; PULSE 60–69; RESP 16–17; TEMP 97.2–97.7; O2SAT 95–100
[2023-12-03] MEDS: ALPRAZolam 0.5 MG TAB PO PRN (01:31)
[2023-12-03] MEDS: IPRATROPIUM BROM 0.5 MG/2.5ML INH SOL NEB SCH ×2 (01:57→07:35)
[2023-12-03] MEDS: ALBUTEROL SULF 2.5 MG/0.5ML(0.5%) NEB SOLN NEB SCH ×2 (01:57→07:35)
[2023-12-03] MEDS: CALCIUM ACETATE 667 MG CAP PO SCH ×3 (06:09→22:19)
[2023-12-03] MEDS: ACCU-CHEK COMFORT CURVE STRIP VI SCH ×4 (06:09→22:11)
[2023-12-03] MEDS: InsuLIN REG 1unit/0.01ml Soln (100units/ml) SC SCH ×4 (06:13→22:13)
[2023-12-03 06:22] LABS: Chloride 100 mmol/L (98-107); Potassium 4.6 mmol/L (3.5-5.1); Sodium 139 mmol/L (136-145)
[2023-12-03 06:23] LABS: Anion Gap 14 (5-15); Calcium 8.8 mg/dL (8.7-10.4); Carbon Dioxide 25 mmol/L (20-30)
[2023-12-03 06:28] LABS: BUN/Creatinine Ratio 8.1 (10.0-20.0); Blood Urea Nitrogen 54 mg/dL (9-23); Glucose 164 mg/dL (74-106)
[2023-12-03] MEDS ORDERED: SODIUM CHL 0.9% 1000 ML BAG XX ONE (07:00)
[2023-12-03 07:24] LABS: Basophils # (auto) 0 10 ^3/uL (0-0.2); Eosinophils # (auto) 0 10 ^3/uL (0-0.8); Mean Corpuscular Volume 95.8 fL (80.0-100.0); White Blood Cell 8.9 10^3/uL (4.4-10.8)
[2023-12-03 07:27] LABS: Hematocrit 25.6 % (36.0-46.0); Hemoglobin 8.5 g/dL (12.2-16.2); Lymphocytes # (auto) 0.3 10 ^3/uL (0.4-5.4); Lymphocytes % (auto) 3.7 % (10.0-50.0); Mean Corpuscular Hemoglobin 31.6 pg (28.0-32.0); Monocytes # (auto) 0.3 10 ^3/uL (0-1.3); Monocytes % (auto) 2.9 % (0.0-12.0); Neutrophils # (auto) 8.3 10 ^3/uL (1.6-8.6); Neutrophils % (auto) 93.4 % (37.0-80.0); Red Blood Cells 2.68 10^6/uL (4.0-5.20); Red Cell Distribution Width 17.7 % (11.8-14.3)
[2023-12-03 07:37] LABS: % Iron Saturation 21.2 % (15-50)
[2023-12-03] MEDS: AZITHROMYCIN 500MG/ 250ML 250 ML IV SCH (09:01)
[2023-12-03] MEDS: SERTRALINE HCL 50 MG TAB PO SCH (09:01)
[2023-12-03] MEDS: methylPREDNISolone SOD SUCC 40 MG/ML VL IV SCH ×2 (09:01→22:10)
[2023-12-03] MEDS: FLORASTOR (S. BOULARDII) 250 MG CAP PO SCH (09:01)
[2023-12-03] MEDS: ATORVASTATIN 20 MG TAB PO SCH (09:02)
[2023-12-03] MEDS: CARVEDILOL 12.5 MG TAB PO SCH ×2 (09:02→22:10)
[2023-12-03] MEDS: amLODIPine BESYLATE 5 MG TAB PO SCH (09:03)
[2023-12-03] MEDS: CALCITRIOL 0.25 MCG CAP PO SCH (12:00)
[2023-12-03] MEDS: CEFEPIME 1GM/ 50ML 50 ML IV SCH (13:05)
[2023-12-03] MEDS: NYSTATIN TOPICAL POWDER 15GM TOP SCH ×2 (13:07→22:19)
[2023-12-03] MEDS ORDERED: EPOETIN ALFA-EPBX 10,000 UNIT/1ML VIAL SC ONE (21:00)
[2023-12-03] MEDS: traZODone HCL 50 MG TAB PO SCH (22:10)
[2023-12-04] VITALS (7 sets, daily range): BP systolic 95–135; BP diastolic 49–70; PULSE 64–73; RESP 16–17; TEMP 98–98.7; O2SAT 95–96
[2023-12-04] MEDS: ALPRAZolam 0.5 MG TAB PO PRN ×2 (02:41→10:34)
[2023-12-04 05:50] LABS: Basophils # (auto) 0 10 ^3/uL (0-0.2); Eosinophils # (auto) 0 10 ^3/uL (0-0.8); Hematocrit 26.7 % (36.0-46.0); Lymphocytes # (auto) 0.2 10 ^3/uL (0.4-5.4); Lymphocytes % (auto) 2.5 % (10.0-50.0); Mean Corpuscular Hgb Conc. 33.6 g/dL (32.0-36.0); Mean Corpuscular Volume 95.3 fL (80.0-100.0); Monocytes # (auto) 0.2 10 ^3/uL (0-1.3); Monocytes % (auto) 2.6 % (0.0-12.0); Neutrophils # (auto) 8.6 10 ^3/uL (1.6-8.6); Neutrophils % (auto) 94.9 % (37.0-80.0); Red Blood Cells 2.81 10^6/uL (4.0-5.20); Red Cell Distribution Width 18.2 % (11.8-14.3); White Blood Cell 9.1 10^3/uL (4.4-10.8)
[2023-12-04 05:59] LABS: Calcium 8.7 mg/dL (8.7-10.4); Chloride 101 mmol/L (98-107); Potassium 4.3 mmol/L (3.5-5.1); Sodium 141 mmol/L (136-145)
[2023-12-04 06:00] LABS: Anion Gap 10 (5-15); Carbon Dioxide 30 mmol/L (20-30)
[2023-12-04 06:05] LABS: BUN/Creatinine Ratio 9.3 (10.0-20.0); Blood Urea Nitrogen 54 mg/dL (9-23); Glucose 185 mg/dL (74-106)
[2023-12-04] MEDS: CALCIUM ACETATE 667 MG CAP PO SCH ×2 (06:11→13:35)
[2023-12-04] MEDS: hydrALAZINE HCL 20 MG/ML VL IV PRN (06:11)
[2023-12-04] MEDS: ACCU-CHEK COMFORT CURVE STRIP VI SCH ×2 (06:12→11:14)
[2023-12-04] MEDS: InsuLIN REG 1unit/0.01ml Soln (100units/ml) SC SCH ×2 (06:17→11:22)
[2023-12-04] MEDS: CARVEDILOL 12.5 MG TAB PO SCH (10:00)
[2023-12-04] MEDS: FLORASTOR (S. BOULARDII) 250 MG CAP PO SCH (10:32)
[2023-12-04] MEDS: ATORVASTATIN 20 MG TAB PO SCH (10:32)
[2023-12-04] MEDS: AZITHROMYCIN 500MG/ 250ML 250 ML IV SCH (10:32)
[2023-12-04] MEDS: amLODIPine BESYLATE 5 MG TAB PO SCH (10:32)
[2023-12-04] MEDS: SERTRALINE HCL 50 MG TAB PO SCH (10:32)
[2023-12-04] MEDS: NYSTATIN TOPICAL POWDER 15GM TOP SCH (10:32)
[2023-12-04] MEDS: methylPREDNISolone SOD SUCC 40 MG/ML VL IV SCH (10:32)
[2023-12-04] MEDS: HYDROcodone-ACET 5/325MG TAB PO PRN (10:34)
[2023-12-04] MEDS: CEFEPIME 1GM/ 50ML 50 ML IV SCH (11:08)
[2023-12-04] MEDS ORDERED: TRAZ-227 PO (15:02)
[2023-12-04] MEDS ORDERED: SERT50TA PO (15:02)
== END 2023-12-04 18:01 | disposition home health service (06) | DRG 137 ==
LOC: ER 09:45 → EDBD 09:45 → TELE 11:51 → TELE-EAST 23:21 → DOU IN ICU 11-30 15:20 → TELE-CENTR 12-02 12:04
PROVIDERS: ADMIT Internal Medicine Pulmonary Disease; ATTEND Internal Medicine Pulmonary Disease
PROC: 5A1D70Z Performance of Urinary Filtration, Intermittent, Less than 6 Hours Per Day (ICD-10-PCS; 2023-11-28)
PROC: 5A1D70Z Performance of Urinary Filtration, Intermittent, Less than 6 Hours Per Day (ICD-10-PCS; 2023-11-29)
PROC: 30233N1 Transfusion of Nonautologous Red Blood Cells into Peripheral Vein, Percutaneous Approach (ICD-10-PCS; principal; 2023-11-30)
PROC: 5A1D70Z Performance of Urinary Filtration, Intermittent, Less than 6 Hours Per Day (ICD-10-PCS; 2023-12-01)
PROC: 5A1D70Z Performance of Urinary Filtration, Intermittent, Less than 6 Hours Per Day (ICD-10-PCS; 2023-12-03)
DX: J15.69 Pneumonia due to other Gram-negative bacteria (principal); J96.21 Acute and chronic respiratory failure with hypoxia; I12.0 Hypertensive chronic kidney disease with stage 5 chronic kidney disease or end stage renal disease; N18.6 End stage renal disease; D63.1 Anemia in chronic kidney disease; R45.851 Suicidal ideations; J96.22 Acute and chronic respiratory failure with hypercapnia; J81.0 Acute pulmonary edema; J81.1 Chronic pulmonary edema; E11.22 Type 2 diabetes mellitus with diabetic chronic kidney disease; E87.6 Hypokalemia; E87.5 Hyperkalemia; E78.5 Hyperlipidemia, unspecified; Z20.822 Contact with and (suspected) exposure to COVID-19; F32.A Depression, unspecified; J44.0 Chronic obstructive pulmonary disease with (acute) lower respiratory infection; J44.1 Chronic obstructive pulmonary disease with (acute) exacerbation; F41.9 Anxiety disorder, unspecified; E66.9 Obesity, unspecified; E11.65 Type 2 diabetes mellitus with hyperglycemia; Z90.710 Acquired absence of both cervix and uterus; Z90.49 Acquired absence of other specified parts of digestive tract; Z86.73 Personal history of transient ischemic attack (TIA), and cerebral infarction without residual deficits; Z87.442 Personal history of urinary calculi; Z87.891 Personal history of nicotine dependence; Z82.49 Family history of ischemic heart disease and other diseases of the circulatory system; Z83.3 Family history of diabetes mellitus; Z68.30 Body mass index [BMI] 30.0-30.9, adult
CPT/HCPCS: 36415; 36600; 70450; 71045; 80048; 80053; 80202; 81001; 82728; 82805; 82962; 83036; 83540; 83550; 83605; 83735; 83880; 84100; 84484; 85007; 85025; 85027; 85379; 85610; 85730; 86706; 86803; 86850; 86900; 86901; 86920; 87040; 87081; 87340; 87426; 87804; 90935; 93005; 94640; 96365; 96367; 96375; 97163; G0378; J1100; J1815; J1956; J7060

== ENCOUNTER 2023-12-18 14:38 | Inpatient (IN) | payer MEDICAID ==
[~2023-12-18] VITALS: Ht 167.6 cm; Wt 81.5 kg
[~2023-12-18 14:38] MED LIST changes: -AMLO1TAB23 PO; -CLIN300C70 PO; -GENT0.1O5 TOP; -INSLISPI SC; -LOSA100T58 PO; -SACC250C PO; +SERT50TA PO; +TRAZ-227 PO
[2023-12-18 15:12] LABS: Basophils # (auto) 0.1 10 ^3/uL (0-0.2); Eosinophils # (auto) 0.2 10 ^3/uL (0-0.8); Hematocrit 24.9 % (36.0-46.0); Monocytes # (auto) 0.5 10 ^3/uL (0-1.3); White Blood Cell 5.5 10^3/uL (4.4-10.8)
[2023-12-18 15:14] LABS: Basophils % (auto) 1.8 % (0.0-2.0); Eosinophils % (auto) 2.8 % (0.0-7.0); Lymphocytes # (auto) 0.9 10 ^3/uL (0.4-5.4); Lymphocytes % (auto) 15.5 % (10.0-50.0); Mean Corpuscular Hemoglobin 31.5 pg (28.0-32.0); Mean Corpuscular Hgb Conc. 32.3 g/dL (32.0-36.0); Mean Corpuscular Volume 97.5 fL (80.0-100.0); Monocytes % (auto) 9.1 % (0.0-12.0); Neutrophils # (auto) 3.9 10 ^3/uL (1.6-8.6); Neutrophils % (auto) 70.8 % (37.0-80.0); Red Blood Cells 2.55 10^6/uL (4.0-5.20); Red Cell Distribution Width 18.9 % (11.8-14.3)
[2023-12-18 15:24] LABS: Alanine Aminotransferase 39 U/L (7-40); Albumin 3.8 g/dL (3.2-4.8); Alkaline Phosphatase 90 U/L (46-116); Anion Gap 9 (5-15); Aspartate Aminotransferase 16 U/L (13-40); BUN/Creatinine Ratio 6.3 (10.0-20.0); Blood Urea Nitrogen 46 mg/dL (9-23); Calcium 9.2 mg/dL (8.5-10.1); Carbon Dioxide 31 mmol/L (20-30); Chloride 103 mmol/L (98-107); Glucose 78 mg/dL (74-106); Potassium 4.9 mmol/L (3.5-5.1); Sodium 143 mmol/L (136-145)
[2023-12-18 15:25] LABS: Bilirubin, Total 0.9 mg/dL (0.2-1.0); Total Protein 5.6 g/dL (5.7-8.2)
[2023-12-18] MEDS ORDERED: NITROGLYCERIN 0.4 MG SL TAB SL ONE (15:45)
[2023-12-18] MEDS ORDERED: ASPirin 325 MG TAB PO ONE (16:00)
[2023-12-18 17:13] VITALS: PULSE 90; RESP 18; O2SAT 96
[2023-12-18] MEDS ORDERED: DOCUSATE SOD 100 MG CAP PO PRN (18:00)
[2023-12-18] MEDS ORDERED: ACETAMINOPHEN 325 MG TAB PO PRN (18:00)
[2023-12-18] MEDS ORDERED: hydrALAZINE HCL 20 MG/ML VL IV PRN (18:15)
[2023-12-18] MEDS ORDERED: CINA30TA14 PO (18:22)
[2023-12-18] MEDS ORDERED: SEVE800T10 PO (18:22)
[2023-12-18] MEDS ORDERED: PANT40T PO (18:22)
[2023-12-18] MEDS ORDERED: SUCR5CHW PO (18:22)
[2023-12-18] MEDS ORDERED: DEXTROSE (50%) 50ML SYRG IV PRN (18:30)
[2023-12-18] MEDS: HYDROcodone-ACET 5/325MG TAB PO PRN (18:38)
[2023-12-18] MEDS: ONDANSETRON HCL 4 MG/2 ML VIAL IV PRN (18:39)
[2023-12-18 19:35] VITALS: PULSE 86; RESP 17; O2SAT 96
[2023-12-18 20:37] VITALS: BP 151/99; PULSE 86; RESP 18; O2SAT 97
[2023-12-18] MEDS: ACCU-CHEK COMFORT CURVE STRIP VI SCH (21:58)
[2023-12-18] MEDS: InsuLIN REG 1unit/0.01ml Soln (100units/ml) SC SCH (21:59)
[2023-12-18] MEDS: VELPHORO 500 MG PO SCH (22:00)
[2023-12-18 22:07] VITALS: PULSE 87; RESP 20; O2SAT 98
[2023-12-18 22:15] VITALS: PULSE 92; RESP 20; O2SAT 100
[2023-12-18] MEDS: ATORVASTATIN 20 MG TAB PO SCH (22:22)
[2023-12-18] MEDS: FUROSEMIDE 40 MG TAB PO SCH (22:23)
[2023-12-18] MEDS: CALCIUM ACETATE 667 MG CAP PO SCH (22:23)
[2023-12-18] MEDS: ALBUTEROL SULF 2.5 MG/0.5ML(0.5%) NEB SOLN NEB SCH (22:41)
[2023-12-18] MEDS: IPRATROPIUM BROM 0.5 MG/2.5ML INH SOL NEB SCH (22:41)
[2023-12-19] VITALS (8 sets, daily range): PULSE 65–98; RESP 12–20; O2SAT 96–100
[2023-12-19] MEDS: HYDROcodone-ACET 5/325MG TAB PO PRN ×3 (01:35→17:18)
[2023-12-19 05:30] LABS: Basophils # (auto) 0.1 10 ^3/uL (0-0.2); Eosinophils # (auto) 0.2 10 ^3/uL (0-0.8); Monocytes # (auto) 0.4 10 ^3/uL (0-1.3); Neutrophils # (auto) 2.7 10 ^3/uL (1.6-8.6); White Blood Cell 4.2 10^3/uL (4.4-10.8)
[2023-12-19 05:33] LABS: Basophils % (auto) 1.8 % (0.0-2.0); Eosinophils % (auto) 3.9 % (0.0-7.0); Hematocrit 22.4 % (36.0-46.0); Hemoglobin 7.3 g/dL (12.2-16.2); Lymphocytes # (auto) 0.9 10 ^3/uL (0.4-5.4); Lymphocytes % (auto) 20.3 % (10.0-50.0); Mean Corpuscular Hgb Conc. 32.7 g/dL (32.0-36.0); Mean Corpuscular Volume 97.9 fL (80.0-100.0); Red Blood Cells 2.29 10^6/uL (4.0-5.20); Red Cell Distribution Width 18.7 % (11.8-14.3)
[2023-12-19 05:47] LABS: Alanine Aminotransferase 33 U/L (7-40); Alkaline Phosphatase 79 U/L (46-116); Anion Gap 9 (5-15); Aspartate Aminotransferase 11 U/L (13-40); BUN/Creatinine Ratio 6.4 (10.0-20.0); Blood Urea Nitrogen 54 mg/dL (9-23); Calcium 9.1 mg/dL (8.5-10.1); Carbon Dioxide 31 mmol/L (20-30); Chloride 102 mmol/L (98-107); Glucose 72 mg/dL (74-106); Potassium 5.1 mmol/L (3.5-5.1); Sodium 142 mmol/L (136-145)
[2023-12-19 05:48] LABS: Albumin 3.5 g/dL (3.2-4.8); Bilirubin, Total 0.7 mg/dL (0.2-1.0); Total Protein 5.1 g/dL (5.7-8.2)
[2023-12-19] MEDS: VELPHORO 500 MG PO SCH ×3 (06:00→21:54)
[2023-12-19] MEDS: FUROSEMIDE 40 MG TAB PO SCH ×2 (06:24→17:40)
[2023-12-19] MEDS: CALCIUM ACETATE 667 MG CAP PO SCH ×3 (06:25→22:00)
[2023-12-19] MEDS: IPRATROPIUM BROM 0.5 MG/2.5ML INH SOL NEB SCH ×3 (06:42→19:54)
[2023-12-19] MEDS: ALBUTEROL SULF 2.5 MG/0.5ML(0.5%) NEB SOLN NEB SCH ×3 (06:42→19:54)
[2023-12-19] MEDS: InsuLIN REG 1unit/0.01ml Soln (100units/ml) SC SCH ×4 (07:00→22:00)
[2023-12-19] MEDS: ACCU-CHEK COMFORT CURVE STRIP VI SCH ×4 (07:08→22:15)
[2023-12-19] MEDS: SEVELAMER 800 MG TAB PO SCH ×3 (08:17→17:41)
[2023-12-19] MEDS ORDERED: cefTRIAXone 1GM/50ML D5W 50 ML IV SCH (09:00)
[2023-12-19] MEDS ORDERED: SODIUM CHL 0.9% 1000 ML BAG XX ONE (09:00)
[2023-12-19] MEDS ORDERED: AZITHROMYCIN 500MG/ 250ML 250 ML IV SCH (10:00)
[2023-12-19] MEDS: PANTOPRAZOLE 40 MG TAB PO SCH (10:59)
[2023-12-19] MEDS: METOPROLOL TARTRATE 50 MG TAB PO SCH (11:01)
[2023-12-19] MEDS: CINACALCET HYDROCHLORIDE 30 MG TAB PO SCH (11:17)
[2023-12-19] MEDS: ONDANSETRON HCL 4 MG/2 ML VIAL IV PRN ×2 (13:29→17:17)
[2023-12-19] MEDS: ACETYLCYSTEINE 10 %(100MG/ML) SOL 4ML NEB SCH ×2 (18:00→19:56)
[2023-12-19] MEDS ORDERED: EPOETIN ALFA-EPBX 10,000 UNIT/1ML VIAL SC ONE (21:00)
[2023-12-19] MEDS: ATORVASTATIN 20 MG TAB PO SCH (21:57)
[2023-12-19] MEDS: PIPERACILLIN-TAZOB 2.25GM 50 ML IV SCH (21:57)
[2023-12-19] MEDS ORDERED: ALBUTEROL SULF 2.5 MG/0.5ML(0.5%) NEB SOLN NEB PRN (23:45)
[2023-12-20] VITALS (10 sets, daily range): BP systolic 123; BP diastolic 79; PULSE 66–74; RESP 16–20; TEMP 97.7; O2SAT 94–100
[2023-12-20] MEDS: HYDROcodone-ACET 5/325MG TAB PO PRN ×3 (02:01→22:17)
[2023-12-20 05:34] LABS: Basophils # (auto) 0.1 10 ^3/uL (0-0.2); Eosinophils # (auto) 0.2 10 ^3/uL (0-0.8); Mean Corpuscular Volume 100.4 fL (80.0-100.0); Monocytes # (auto) 0.4 10 ^3/uL (0-1.3)
[2023-12-20 05:36] LABS: Basophils % (auto) 2.1 % (0.0-2.0); Hematocrit 21.9 % (36.0-46.0); Hemoglobin 7.1 g/dL (12.2-16.2); Lymphocytes # (auto) 0.7 10 ^3/uL (0.4-5.4); Lymphocytes % (auto) 16.3 % (10.0-50.0); Mean Corpuscular Hemoglobin 32.3 pg (28.0-32.0); Mean Corpuscular Hgb Conc. 32.2 g/dL (32.0-36.0); Monocytes % (auto) 8.5 % (0.0-12.0); Neutrophils # (auto) 3.2 10 ^3/uL (1.6-8.6); Neutrophils % (auto) 69.1 % (37.0-80.0); Red Blood Cells 2.18 10^6/uL (4.0-5.20); Red Cell Distribution Width 18.4 % (11.8-14.3); White Blood Cell 4.6 10^3/uL (4.4-10.8)
[2023-12-20] MEDS: VELPHORO 500 MG PO SCH ×3 (06:00→22:18)
[2023-12-20 06:07] LABS: Anion Gap 10 (5-15); Calcium 8.4 mg/dL (8.7-10.4); Carbon Dioxide 28 mmol/L (20-30); Chloride 103 mmol/L (98-107); Potassium 4.4 mmol/L (3.5-5.1); Sodium 141 mmol/L (136-145)
[2023-12-20 06:13] LABS: BUN/Creatinine Ratio 4.7 (10.0-20.0); Glucose 60 mg/dL (74-106)
[2023-12-20] MEDS: CALCIUM ACETATE 667 MG CAP PO SCH ×2 (06:18→10:15)
[2023-12-20] MEDS: FUROSEMIDE 40 MG TAB PO SCH ×2 (06:19→18:23)
[2023-12-20] MEDS: InsuLIN REG 1unit/0.01ml Soln (100units/ml) SC SCH ×4 (06:26→21:25)
[2023-12-20] MEDS: ACCU-CHEK COMFORT CURVE STRIP VI SCH ×4 (06:27→21:25)
[2023-12-20 06:30] LABS: Blood Urea Nitrogen 25 mg/dL (9-23)
[2023-12-20] MEDS: IPRATROPIUM BROM 0.5 MG/2.5ML INH SOL NEB SCH ×3 (07:01→18:29)
[2023-12-20] MEDS: ALBUTEROL SULF 2.5 MG/0.5ML(0.5%) NEB SOLN NEB SCH ×3 (07:01→18:29)
[2023-12-20] MEDS: ACETYLCYSTEINE 10 %(100MG/ML) SOL 4ML NEB SCH ×2 (07:01)
[2023-12-20] MEDS: SEVELAMER 800 MG TAB PO SCH ×3 (08:22→18:16)
[2023-12-20] MEDS: PIPERACILLIN-TAZOB 2.25GM 50 ML IV SCH ×2 (10:35→22:19)
[2023-12-20] MEDS: CINACALCET HYDROCHLORIDE 30 MG TAB PO SCH (10:36)
[2023-12-20] MEDS: METOPROLOL TARTRATE 50 MG TAB PO SCH (10:36)
[2023-12-20] MEDS: PANTOPRAZOLE 40 MG TAB PO SCH (10:36)
[2023-12-20] MEDS: ONDANSETRON HCL 4 MG/2 ML VIAL IV PRN (10:37)
[2023-12-20] MEDS: ATORVASTATIN 20 MG TAB PO SCH (22:17)
[2023-12-21] VITALS (10 sets, daily range): BP systolic 91–137; BP diastolic 28–75; PULSE 52–86; RESP 16–18; TEMP 97.7–98.6; O2SAT 97–100
[2023-12-21 06:02] LABS: Basophils # (auto) 0 10 ^3/uL (0-0.2); Basophils % (auto) 1.7 % (0.0-2.0); Eosinophils # (auto) 0.1 10 ^3/uL (0-0.8); Eosinophils % (auto) 3.7 % (0.0-7.0); Hematocrit 21.9 % (36.0-46.0); Hemoglobin 7.2 g/dL (12.2-16.2); Lymphocytes # (auto) 0.6 10 ^3/uL (0.4-5.4); Lymphocytes % (auto) 20.6 % (10.0-50.0); Mean Corpuscular Hemoglobin 32.2 pg (28.0-32.0); Mean Corpuscular Hgb Conc. 32.8 g/dL (32.0-36.0); Mean Corpuscular Volume 98.1 fL (80.0-100.0); Monocytes # (auto) 0.2 10 ^3/uL (0-1.3); Monocytes % (auto) 8.8 % (0.0-12.0); Neutrophils # (auto) 1.8 10 ^3/uL (1.6-8.6); Neutrophils % (auto) 65.2 % (37.0-80.0); Nucleated Red Blood Cells % 0.1 %; Red Blood Cells 2.23 10^6/uL (4.0-5.20); Red Cell Distribution Width 18.1 % (11.8-14.3); White Blood Cell 2.7 10^3/uL (4.4-10.8)
[2023-12-21 06:26] LABS: Anion Gap 6 (5-15); Calcium 8.2 mg/dL (8.7-10.4); Carbon Dioxide 32 mmol/L (20-30); Chloride 102 mmol/L (98-107); Potassium 4.6 mmol/L (3.5-5.1); Sodium 140 mmol/L (136-145)
[2023-12-21 06:32] LABS: BUN/Creatinine Ratio 4.9 (10.0-20.0); Blood Urea Nitrogen 33 mg/dL (9-23); Glucose 108 mg/dL (74-106)
[2023-12-21] MEDS: InsuLIN REG 1unit/0.01ml Soln (100units/ml) SC SCH ×4 (06:40→21:59)
[2023-12-21] MEDS: ACCU-CHEK COMFORT CURVE STRIP VI SCH ×4 (06:40→21:59)
[2023-12-21] MEDS: IPRATROPIUM BROM 0.5 MG/2.5ML INH SOL NEB SCH ×3 (06:49→18:06)
[2023-12-21] MEDS: ALBUTEROL SULF 2.5 MG/0.5ML(0.5%) NEB SOLN NEB SCH ×3 (06:49→18:06)
[2023-12-21] MEDS: FUROSEMIDE 40 MG TAB PO SCH ×2 (06:51→17:39)
[2023-12-21] MEDS: VELPHORO 500 MG PO SCH ×3 (06:51→21:51)
[2023-12-21] MEDS: CALCIUM ACETATE 667 MG CAP PO SCH ×3 (08:22→17:43)
[2023-12-21] MEDS: SEVELAMER 800 MG TAB PO SCH ×3 (08:22→17:43)
[2023-12-21] MEDS: HYDROcodone-ACET 5/325MG TAB PO PRN ×2 (08:26→19:50)
[2023-12-21] MEDS: PANTOPRAZOLE 40 MG TAB PO SCH (09:51)
[2023-12-21] MEDS: PIPERACILLIN-TAZOB 2.25GM 50 ML IV SCH ×2 (09:51→21:55)
[2023-12-21] MEDS: METOPROLOL TARTRATE 50 MG TAB PO SCH (09:51)
[2023-12-21] MEDS: CINACALCET HYDROCHLORIDE 30 MG TAB PO SCH (12:49)
[2023-12-21] MEDS: ATORVASTATIN 20 MG TAB PO SCH (21:51)
[2023-12-22] VITALS (9 sets, daily range): BP systolic 102–129; BP diastolic 64–77; PULSE 61–77; RESP 16–18; TEMP 97.3–98.1; O2SAT 96–100
[2023-12-22] MEDS: HYDROcodone-ACET 5/325MG TAB PO PRN ×3 (04:10→16:41)
[2023-12-22] MEDS: FUROSEMIDE 40 MG TAB PO SCH (06:00)
[2023-12-22] MEDS: VELPHORO 500 MG PO SCH ×2 (06:02→14:21)
[2023-12-22] MEDS: InsuLIN REG 1unit/0.01ml Soln (100units/ml) SC SCH ×3 (06:06→16:31)
[2023-12-22] MEDS: ACCU-CHEK COMFORT CURVE STRIP VI SCH ×3 (06:07→16:31)
[2023-12-22] MEDS: IPRATROPIUM BROM 0.5 MG/2.5ML INH SOL NEB SCH ×2 (06:32→12:23)
[2023-12-22] MEDS: ALBUTEROL SULF 2.5 MG/0.5ML(0.5%) NEB SOLN NEB SCH ×2 (06:32→12:23)
[2023-12-22] MEDS ORDERED: SODIUM CHL 0.9% 1000 ML BAG XX ONE (07:00)
[2023-12-22] MEDS: SEVELAMER 800 MG TAB PO SCH ×2 (08:10→13:00)
[2023-12-22] MEDS: CALCIUM ACETATE 667 MG CAP PO SCH ×2 (08:10→13:00)
[2023-12-22] MEDS: PANTOPRAZOLE 40 MG TAB PO SCH (09:25)
[2023-12-22] MEDS: CINACALCET HYDROCHLORIDE 30 MG TAB PO SCH (09:25)
[2023-12-22] MEDS: METOPROLOL TARTRATE 50 MG TAB PO SCH (10:00)
[2023-12-22] MEDS ORDERED: LEVO500T91 PO (12:20)
[2023-12-22] MEDS: PIPERACILLIN-TAZOB 2.25GM 50 ML IV SCH (12:29)
[2023-12-22] MEDS ORDERED: EPOETIN ALFA-EPBX 10,000 UNIT/1ML VIAL SC ONE (21:00)
== END 2023-12-22 17:30 | disposition home or self-care (01) | DRG 140 ==
LOC: EDBD 14:38 → EDUNIT# 14:38 → ER 14:38 → OVERFLOW 17:51 → EAST 12-20 10:04 → CENTRAL 12-20 17:33
PROVIDERS: ADMIT Nurse Practitioner Family; ATTEND Nurse Practitioner Acute Care
PROC: 5A1D70Z Performance of Urinary Filtration, Intermittent, Less than 6 Hours Per Day (ICD-10-PCS; principal; 2023-12-19)
PROC: 5A1D70Z Performance of Urinary Filtration, Intermittent, Less than 6 Hours Per Day (ICD-10-PCS; 2023-12-22)
DX: J44.1 Chronic obstructive pulmonary disease with (acute) exacerbation (principal); J96.21 Acute and chronic respiratory failure with hypoxia; I21.A1 Myocardial infarction type 2; J15.69 Pneumonia due to other Gram-negative bacteria; I12.0 Hypertensive chronic kidney disease with stage 5 chronic kidney disease or end stage renal disease; J15.9 Unspecified bacterial pneumonia; D63.1 Anemia in chronic kidney disease; N18.6 End stage renal disease; J44.0 Chronic obstructive pulmonary disease with (acute) lower respiratory infection; I16.0 Hypertensive urgency; E11.22 Type 2 diabetes mellitus with diabetic chronic kidney disease; N25.0 Renal osteodystrophy; K21.9 Gastro-esophageal reflux disease without esophagitis; E78.5 Hyperlipidemia, unspecified; Z99.2 Dependence on renal dialysis; Z99.81 Dependence on supplemental oxygen; Z87.442 Personal history of urinary calculi; Z86.73 Personal history of transient ischemic attack (TIA), and cerebral infarction without residual deficits; Z90.710 Acquired absence of both cervix and uterus; Z87.891 Personal history of nicotine dependence; Z87.01 Personal history of pneumonia (recurrent); Z80.8 Family history of malignant neoplasm of other organs or systems; Z82.49 Family history of ischemic heart disease and other diseases of the circulatory system; Z83.3 Family history of diabetes mellitus
CPT/HCPCS: 36415; 71045; 80048; 80053; 82306; 82962; 83970; 84100; 84484; 85025; 87081; 90935; 93005; 94640; 99291; G0378; J2405; J2543